=== PATIENT | female | born 1965 | race Caucasian/White ===

== ENCOUNTER 2023-08-30 18:46 | Emergency (ER) | payer OTHER, SELFPAY ==
[2023-08-30 18:48] VITALS: BP 137/87
[2023-08-30 19:23] VITALS: BMI 22.4
--- NOTE | 2023-08-30 19:33 | ED.GENMED ---
History of Present Illness
General
Chief Complaint: Abdominal Pain
Source: patient
Exam Limitations: none
Time Seen by Provider: 08/30/23 19:10
Travel History
Have you had any contact with someone who has COVID-19?: No
Do you have any symptoms of coronavirus? Fever > 100 degrees, chills, cough, shortness of breath, sore throat, loss of taste or smell, muscle aches, or headache?: No
History of Present Illness
History of Present Illness:
This is a 58 year old female that comes in with c/o abd pain and swelling. States that this started a little last night and then today she felt her discomfort and the swelling was worse. States that she has been constipated and that for the past few
days her urine is dark and has a smell. Denies any fever, chills, chest pain, SOB, nausea, vomiting, diarrhea, headache, dizziness, urinary burning.
Past History
Past History
ED Past Medical History: Other (Migraines, Neck pain, ); Negative Asthma, HTN, Hypercholesterolemia or NIDDM
ED Past Surgical History: Gynecological (Tubal ligation, ), Orthopedic (Shoulder surgery, Left knee surgery, Ulnar nerve surgery) and Other (Deviated septum repair, )
Social History
Tobacco: Non-smoker
Alcohol: Occasional
Personal:
Living: with family
Review of Systems
Review of Systems
All Other Systems: ROS reviewed and negative except as documented in HPI and ROS
Constitutional: Reports no symptoms; Denies fever or chills
EENT: Reports no symptoms
Respiratory: Reports no symptoms; Denies cough or trouble breathing
Cardiac: Reports no symptoms; Denies chest pain
ABD/GI: Reports abdominal pain and constipated; Denies nausea, vomiting or diarrhea
: Reports dark urine ( and fowl smell); Denies dysuria, frequency or urgency
Musculoskeletal: Reports no symptoms
Skin: Reports no symptoms
Neurological: Reports no symptoms; Denies dizzy or headache
Psychiatric: Reports no symptoms
Phy Exam
General Physical Exam
General Presentation: no apparent distress
General age: appears stated age
General Skin: warm and dry
General Habitus: normal
General Mental: alert
General Hydration: appears well hydrated
ENT Exam
ENT Exam: TM's normal, pharynx normal and neck supple
Eye Exam
Eye Exam: EOMI
Cardiovascular Exam
Cardiovascular Exam: regular rate/rhythm, no edema, no murmur and normal peripheral pulses
Pulmonary Exam
Pulmonary Exam: lungs clear, no respiratory distress, no rales, chest non tender, no crackles, no rhonchi, no wheezing and no cough
Gastrointestinal Exam
Gastrointestinal Exam: normal bowel sounds, soft, no organomegaly, no pulsatile mass, non distended and tender (mid abd tenderness with palpation)
Musculoskeletal Exam
Musculoskeletal Exam: full ROM and no edema
Skin Exam
Skin Exam: normal color, warm/dry, no rash and no petechia
Psychiatric Exam
Psychiatric Exam: normal mood/affect
Course
Orders/Labs/Results
Orders:
Orders
08/30/23 19:21
0.9% Sodium Chloride 1000 ml [Nss] 1,000 ml IV BOLUS
08/30/23 19:32
CT Abd/pel W Iv And Oral Contr Urgent
Comment:
Reason For Exam: Mid abd pain
Iohexol [Omnipaque] See Protocol PO NOW STA
08/30/23 19:52
Complete Blood Count/With Diff Urgent
Comprehensive Metabolic Panel Urgent
Urinalysis Reflex To Culture Urgent
Date Specimen was Collected: 08/30/23
Time Specimen was Collected: 19:50
Urine Microscopic Reflex Cult Urgent
Abnormal Lab Results
08/30/23
19:52
MCV 77.8 L fL
(81.0-99.0)
MCH 26.6 L pg
(27.0-31.0)
Neutrophils % 40.2 L %
(42.2-75.2)
Monocytes % 9.7 H %
(1.7-9.3)
Leukocyte Esterase Rfl Trace A
(Negative)
Urine Bacteria (Reflex) Few A
(Negative)
08/30/23 19:52
08/30/23 19:52
labs unremarkable. Urine negative for infection.
Vital Signs
Initial and Last Documented VS:
Initial Vital Signs
Temp Pulse BP Pulse Ox
98.2 F 69 137/87 99
08/30/23 18:48 08/30/23 18:48 08/30/23 18:48 08/30/23 18:48
Last Documented Vital Signs
Temp Pulse BP Pulse Ox
98.2 F 72 134/86 99
08/30/23 18:48 08/30/23 22:00 08/30/23 22:00 08/30/23 22:00
MDM/Problems Addressed
Differential Diagnosis Includes:
Constipation, UTI
MDM/Problems Addressed:
This is a 58 year old female that comes in with c/o abd pain and swelling. States that this started last night and has continued to get worse
Will get lab, Urine and CT. Will give IV fluids.
Back into see patient. Explained that her blood work is normal and her urine is negative for infection. CT is negative for any acute process. Explained that this right sided swelling may have been stool in the intestine that has moved. However,
there is no really sign of constipation. Patient to increase her water intake to 8-8oz glasses daily. Follow up with the family doctor. Offered patient Magnesium Citrate for her constipation but patient will continue with her Benefiber and Dulcolax.
Patient to return with any concerns.
Chronic conditions affecting care:
NA
Acute Exacerbation and/or Progression of Chronic Illness:
NA
*Radiology
Radiology exam reviewed: radiology read reviewed (CT- NO CT evidenec of acute abdominal or pelvic process. Normal liver, gallbladder, pancreas, spleen and kidneys. The bowel is unremarkable. No intestinal obstruction or free air. Normal appendix.
Possible small 2 cm low anterior uterine fibroid (series 202, image 34). Ovaries are grossly ) and other (CT cont- grossly unremarkable by CT. Moderately Distended bladder. )
*Pulse Oximetry
Patient hypoxic: no
*EKG
Interpreted by ED Provider?: NA
Rate: EKG- N/A
*Dredge Engineer Interpretation
Rate: Dredge Engineer- N/A
*Critical Care Note
Total Time (30-74mins, 75-104mins- exclusive of procedures): Not Applicable
ED Attending Note
-
Portions of this chart may have been created with voice recognition software.� Occasional wrong word or��sound alike� substitutions may have occurred due to the inherent limitations of voice recognition software.
Discharge Plan
Departure
Patient Disposition: Home (Routine Discharge)
Date of Disposition: 08/30/23
Time of Disposition: 23:28
Patient with high blood pressure during this ER visit?: Yes
Condition: Good
Covid-19: Not Applicable
Discharge Problem:
Abdominal pain
Instructions: Abdominal Pain, BLOOD PRESSURE
Prescriptions:
No Action
tramadol 50 mg tablet
50 mg PO Q6H PRN (Reason: Pain) Qty: 14 0RF
methylprednisolone [Medrol (Derrick)] 4 mg tablets,dose pack
See Rx Instructions .ROUTE .COMPLEX Qty: 21 0RF
Rx Instructions:
orally per package directions
oxycodone-acetaminophen [Endocet] 5-325 mg tablet
1 tab PO Q6H PRN (Reason: Pain) Qty: 10 0RF
Referrals:
Heath Dumont MD [Family Provider] - Follow up in 2-3 days
Activity Restrictions/Additional Instructions:
As discussed, your blood work is normal along with your CT scan. This may have been stool going through the intestine. Please increase your water intake to 8-8oz glasses daily. Continue with your bowel regiment at home. Follow up with the family
doctor for recheck. IF YOU HAVE INCREASED OR CHANGING PAIN, OR YOU HAVE ANY OTHER CONCERNS PLEASE RETURN TO THE EMERGENCY ROOM
Interventions
Interventions:
*Risk Screen - Suicide Last Done: 08/30/23 18:49
*General Assessment Last Done: 08/30/23 18:49
*Neglect/Abuse Screening Last Done: 08/30/23 18:49
*ED COVID-19 Vaccine History Last Done: 08/30/23 22:21
GR-Ooagzh-Jkziucfsho Assessment Last Done: 08/30/23 22:00
[2023-08-30] MEDS: OMNIPAQUE 50 ML PO (19:46)
[2023-08-30] MEDS: NSS 1000 IV (19:50)
[2023-08-30 20:07] LABS: % Basophils 0.7 % (0-2); % Eosinophils 2.8 % (0-6); % Immature Granulocytes 0.3 % (0-0.5); % Lymphocytes 46.3 % (20.5-51.1); % Monocytes 9.7 % (1.7-9.3); % Neutrophils 40.2 % (42.2-75.2); Absolute Eosinophils 0.2 10^3/uL (0-0.7); Absolute Lymphocytes 2.8 10^3/uL (1.2-3.4); Absolute Monocytes 0.6 10^3/uL (0.1-0.6); Absolute Neutrophils 2.5 10^3/uL (1.4-6.5); Hematocrit 38.9 % (37.0-47.0); Hemoglobin 13.3 g/dL (12.0-16.0); Mean Corp Hgb Conc. 34.2 g/dL (33.0-37.0); Mean Corpuscular Hgb 26.6 pg (27.0-31.0); Mean Corpuscular Volume 77.8 fL (81.0-99.0); Mean Platelet Volume 9.2 fL (7.4-10.4); Nucleated Red Blood Cells % 0 %; Platelet Count 238 10^3/uL (130-400); Red Cell Dist. Width 13.4 % (11.5-14.5); White Blood Cell Count 6.1 10^3/uL (4.8-10.8)
[2023-08-30 20:09] LABS: Urine Albumin Negative (Neg - Trace); Urine Bilirubin Negative (Negative); Urine Character Clear (Clear); Urine Color Straw; Urine Glucose Negative (Negative); Urine Ketone Negative (Negative); Urine Leukocyte Trace (Negative); Urine Nitrite Negative (Negative); Urine Occult Blood Negative (Negative); Urine Urobilinogen Negative (Neg - 1+); Urine pH 6.5 (5.0-9.0)
[2023-08-30 20:20] LABS: Urine Bacteria Few (Negative)
[2023-08-30 20:21] LABS: Urine Red Blood Cell 0-2 /HPF (0-2); Urine White Cell 0-2 /HPF (0-5)
[2023-08-30 20:23] LABS: ALT (SGPT) 18 U/L (0-35); AST (SGOT) 25 U/L (14-36); Albumin 4.5 g/dl (3.5-5.0); Alkaline Phosphatase 58 U/L (38-126); Blood Urea Nitrogen 14 mg/dl (7-17); Calcium 9.5 mg/dl (8.4-10.2); Carbon Dioxide 30 mmol/L (22-30); Chloride 105 mmol/L (98-107); Estimated Creatinine Clearance 68 ml/min; Glucose 83 mg/dl (70-99); Potassium 4.4 mmol/L (3.5-5.1); Sodium 138 mmol/L (135-145); Total Bilirubin 0.8 mg/dl (0.2-1.3); Total Protein 7.5 g/dl (6.3-8.2); eGFR > 60.00
[2023-08-30 22:00] VITALS: BP 134/86
== END 2023-08-30 23:40 | disposition home or self-care (01) ==
LOC: EMR 18:46
PROVIDERS: Clinical Nurse Specialist Family Health; EMERGENCY PHYSICIAN Emergency Medicine; FAMILY PHYSICIAN Internal Medicine
DX: R10.9 Unspecified abdominal pain (principal); K59.00 Constipation, unspecified; Z98.51 Tubal ligation status
CPT/HCPCS: 99284; 74177; 80053; 81003; 81015; 85025; Q9967

== ENCOUNTER 2024-08-12 06:27 | Day surgery (SDC) | payer OTHER, SELFPAY | END 2024-08-12 13:08 | disposition home or self-care (01) | LOC: GI 06:27 | PROVIDERS: ATTENDING PHYSICIAN Internal Medicine Gastroenterology; FAMILY PHYSICIAN Internal Medicine | DX: Z12.11 Encounter for screening for malignant neoplasm of colon (principal); Z83.719 Family history of colon polyps, unspecified | CPT/HCPCS: G0105 ==